=== PATIENT | male | born 1990 | race Caucasian/White ===

== ENCOUNTER 2017-05-13 14:30 | Emergency (ER) | payer OTHER ==
[2017-05-13] MEDS ORDERED: Ativan 2 MG/1 ML VIAL IV ONE ×2 (14:41→16:22)
[2017-05-13] MEDS ORDERED: Sodium Chloride 0.9% 1000 ML 1,000 ML IV SCH (14:45)
[2017-05-13 15:01] LABS: VBG BASE EXCESS 1.6 (-2.0-2.0); VBG CARBOXYHEMOGLOBIN 8.9 % T HGB (0.0-6.9); VBG HCO3- 24.7 meq/L (22-28); VBG HEMOGLOBIN 16.1; VBG O2 SATURATION 98.3 (95-100); VBG POTASSIUM 3.8 (3.5-5.1); VBG pH 7.47 (7.32-7.42)
--- NOTE | 2017-05-13 15:06 | ERPHSYRPT ---
- History of Present Illness Time Seen by Provider: 05/13/17 14:39 Source: patient, family (mother), EMS Patient Subjective Stated Complaint: PT states "Ever since tuesday when I put pressure on my legs I have a spell. I shake all over and I cant stand up." Triage Nursing Assessment: Pt alert and oriented X 3, skin pwd. Pt shaking all over. WHen pt moves, shaking gets worse. Pt unable to hold up either leg without tremors increasing. able to speak in clear full sentences. Physician History: CC: seizures Hx: 26 y/o patient with no local family doctor. He has no hx of seizure disorder. Since Tuesday he has had spells of shaking like seizures. They are intermittent, last 20 seconds, can no talk during. Worse if he tries to stand or exert himself. Normal urination. No N/T or focal weakness. No headache. Was taken to [facility] where CT brain negative and labs ok. Drug testing neg. He had EEG yesterday at [facility]. He was supposed to see neurology but that did not work out as it was a peds. He has hit his head during these spells. He was placed on celexa 4 weeks ago. Mom stopped it two days ago. No muscle pain. No other medications. He now is not able to function at home. Has been eating. No dysphagia. He had low grade temp at [facility]. Allergies/Adverse Reactions: iodine Allergy (Verified 05/31/14 03:23) Home Medications: Citalopram Hydrobromide [Celexa] 20 mg PO DAILY 05/13/17 [History] Hx Tetanus, Diphtheria Vaccination/Date Given: Yes Hx Influenza Vaccination/Date Given: No Hx Pneumococcal Vaccination/Date Given: No Immunizations Up to Date: Yes - Review of Systems Constitutional: Fatigue, Malaise, Weakness, No Fever Eyes: No Vision Changes, No Double Vision Ears, Nose, & Throat: No Symptoms Respiratory: No Cough, No Dyspnea Cardiac: No Chest Pain Abdominal/Gastrointestinal: No Abdominal Pain, No Nausea, No Vomiting, No Diarrhea Genitourinary Symptoms: No Dysuria Musculoskeletal: No Back Pain, No Neck Pain Neurological: No Focal Weakness, No Parasthesia All Other Systems: Reviewed and Negative - Past Medical History Pertinent Past Medical History: Yes Neurological History: No Pertinent History ENT History: No Pertinent History Cardiac History: No Pertinent History Respiratory History: Asthma, COPD, Other Endocrine Medical History: No Pertinent History Musculoskeletal History: No Pertinent History GI Medical History: No Pertinent History History: No Pertinent History Psycho-Social History: Depression, Other Male Reproductive Disorders: No Pertinent History Other Medical History: BORDERLINE PERSONALITY, suicide attempt in past- acetaminophen overdose requiring icu stay, inpatient psych unit stay with ed. - Past Surgical History Past Surgical History: Yes Neuro Surgical History: No Pertinent History Cardiac: No Pertinent History Respiratory: No Pertinent History Gastrointestinal: Hernia Repair Genitourinary: No Pertinent History Musculoskeletal: No Pertinent History Male Surgical History: No Pertinent History - Social History Smoking Status: Current every day smoker How long have you smoked: 10 years Exposure to second hand smoke: Yes Alcohol Use: Socially Drug Use: other Patient Lives Alone: Yes Significant Family History: no pertinent family hx - Nursing Vital Signs Nursing Vital Signs: Initial Vital Signs Temperature 100.8 F 05/13/17 14:30 Pulse Rate 128 H 05/13/17 14:30 Respiratory Rate 122 H 05/13/17 14:30 Blood Pressure 138/90 05/13/17 14:30 O2 Sat by Pulse Oximetry 97 05/13/17 14:30 Pain Scale Pain Intensity 0 - Luisa Coma Scale Best Eye Response (Luisa): (4) open spontaneously Best Verbal Response (Luisa): (5) oriented Best Motor Response ([place]): (6) obeys commands [place] Total: 15 - Physical Exam General Appearance: alert, other (very jittery) Eye Exam: bilateral eye: PERRL, EOMI Ears, Nose, Throat Exam: normal ENT inspection, moist mucous membranes Neck Exam: normal inspection, non-tender, supple, No meningismus Respiratory: normal breath sounds, lungs clear Cardiovascular: regular rate/rhythm, No murmur Gastrointestinal: soft, other (bladder was full but he was able to urinate without difficulty and it resolved), No tenderness, No distention, No mass, No guarding Male Genitalia: normal genitalia, No hernia, No testicular tenderness Back Exam: normal inspection, normal range of motion, No vertebral tenderness Extremity Exam: normal inspection, normal range of motion Mental Status: alert, oriented x 3, cooperative Coordination/Gait: No normal gait DTR: knee (R): 4+, knee (L): 4+, ankle (R): 3+, ankle (L): 3+ Skin Exam: warm, dry, ecchymosis (forehead), No rash SpO2 Interpretation: normal SpO2: 97 Oxygen Delivery: Room Air Comments: Neurological: Awake, alert. Very jittery. Lower extremities have fairly symmetrical weakness. He has marked clonus at patella and ankle jerks. No clonus at arms. No rigidity. Muscles soft and NT. Face symmetric. PERRL. EOMI. Neck supple. Procedures - Lumbar Puncture Indication: fever, r/o meningitis Lumbar Puncture: consent obtained, sitting, 1% lidocaine local anesth, size of needle (22ga), 4-5 lumbar space, fluid color clear, amount of fluid obtained ( 4ml), no complications - Course Nursing assessment & vital signs reviewed: Yes EKG Interpreted by Me: RATE ([id number]), Sinus Tach, NORMAL AXIS, NORMAL INTERVALS ( QTc 456), NORMAL QRS, NORMAL ST-T Ordered Tests: Active Orders 24 hr Category Date Time Status Clean Catch Urine Specimen STAT Care 05/13/17 14:39 Active EKG-ER Only STAT Care 05/13/17 14:39 Active IV Insertion STAT Care 05/13/17 14:39 Active NPO (ED) STAT Care 05/13/17 14:39 Active Pulse Oximetry (ED) STAT Care 05/13/17 14:41 Active Seizure Precautions -SCCHED STAT Care 05/13/17 14:41 Active MRI BRAIN W & W/O CONTRAST [MRI] Stat Exams 05/13/17 15:03 Taken BLOOD CULTURE Stat Lab 05/13/17 15:02 Received CBC W DIFF Stat Lab 05/13/17 14:39 Completed CK-Creatinine Phosphokinase Stat Lab 05/13/17 14:55 Completed CMP Stat Lab 05/13/17 14:55 Completed CRP, HIGH SENSITIVITY Stat Lab 05/13/17 14:55 Completed CSF GLUCOSE Stat Lab 05/13/17 17:15 Completed CSF PROTEIN Stat Lab 05/13/17 17:15 Completed CSF, CELL COUNT Stat Lab 05/13/17 17:15 Completed CULTURE,CSF Stat Lab 05/13/17 16:23 Uncollected CULTURE,CSF Stat Lab 05/13/17 17:15 Results Lactic Acid Stat Lab 05/13/17 14:48 Completed MAGNESIUM Stat Lab 05/13/17 14:55 Completed PROTIME WITH INR Stat Lab 05/13/17 14:55 Completed PTT Stat Lab 05/13/17 14:55 Completed UA W/RFX UR CULTURE Stat Lab 05/13/17 14:39 Completed Urine Triage Profile Stat Lab 05/13/17 14:39 Completed VENOUS BLOOD GAS Stat Lab 05/13/17 14:48 Completed Medication Summary Generic Name Dose Route Start Last Admin Trade Name Kemi PRN Reason Stop Dose Admin Sodium Chloride 1,000 mls @ 100 mls/hr 05/13/17 14:45 05/13/17 15:08 Sodium Chloride 0.9% 1000 Ml IV 06/12/17 14:44 100 mls/hr .Q10H ZELALEM Administration Discontinued Medications Generic Name Dose Route Start Last Admin Trade Name Hectorq PRN Reason Stop Dose Admin Lorazepam 1 mg 05/13/17 14:41 05/13/17 15:08 Ativan 2 Mg/1 Ml Vial IV 05/13/17 14:42 1 mg STAT ONE Administration Lorazepam Confirm 05/13/17 15:07 Ativan 2 Mg/1 Ml Vial Administered 05/13/17 15:08 Dose 2 mg .ROUTE .STK-MED ONE Lorazepam 1 mg 05/13/17 16:22 05/13/17 16:33 Ativan 2 Mg/1 Ml Vial IV 05/13/17 16:23 1 mg STAT ONE Administration Lorazepam Confirm 05/13/17 16:23 Ativan 2 Mg/1 Ml Vial Administered 05/13/17 16:24 Dose 2 mg .ROUTE .STK-MED ONE Lab/Rad Data: Laboratory Result Diagrams 05/13/17 14:39 05/13/17 14:55 Laboratory Results 05/13/17 05/13/17 05/13/17 Range/Units 17:15 17:15 14:55 WBC (4.0-10.5) K/mm3 RBC (4.1-5.6) M/mm3 Hgb (12.5-18.0) gm/dl Hct (42-50) % MCV (78-100) fl MCH (26-32) pg MCHC (32-36) g/dl RDW (11.5-14.0) % Plt Count (150-450) K/mm3 MPV (6-9.5) fl Gran % (36.0-66.0) % Lymphocytes % (24.0-44.0) % Monocytes % (0.0-12.0) % Eosinophils % (0.00-5.0) % Basophils % (0.0-0.4) % Basophils # (0-0.4) INR (0.8-3.0) APTT (24.1-36.1) SECONDS VBG pH (7.32-7.42) VBG pCO2 at Pat Temp (42-55) mm/Hg VBG pO2 at Pat Temp (25-40) mm/Hg VBG HCO3 (22-28) meq/L VBG O2 Sat (Dayana) (95-100) VBG Base Excess (-2.0-2.0) VBG Hemoglobin VBG Carboxyhemoglobin (0.0-6.9) % T HGB POC Potassium (3.5-5.1) Sodium (136-145) mEq/L Potassium (3.5-5.1) mEq/L Chloride (98-107) mEq/L Carbon Dioxide (21-32) mEq/L Anion Gap (5-15) MEQ/L BUN (9-20) mg/dL Creatinine (0.55-1.30) mg/dl Estimated GFR ML/MIN Glucose (70-110) MG/DL Lactic Acid (0.4-2.0) Calcium (8.5-10.1) mg/dL Magnesium 2.1 (1.8-2.4) mg/dL Total Bilirubin (0.2-1.0) mg/dL AST (15-37) U/L ALT (12-78) U/L Alkaline Phosphatase (46-116) U/L Creatine Kinase (39-308) U/L C-React Prot High Sens (0.0-3.0) mg/L Serum Total Protein (6.4-8.2) gm/dL Albumin (3.4-5.0) g/dL Ur Collection Type Urine Color (YELLOW) Urine Appearance (CLEAR) Urine pH (5-6) Ur Specific [place] (1.005-1.025) Urine Protein (Negative) Urine Ketones (NEGATIVE) Urine Blood (0-5) [place]/ul Urine Nitrite (NEGATIVE) Urine Bilirubin (NEGATIVE) Urine Urobilinogen (0-1) mg/dL Ur Leukocyte Esterase (NEGATIVE) Urine Culture Reflexed (NO) Urine Glucose (NEGATIVE) mg/dL CSF Appearance CLEAR CSF Color COLORLESS CSF WBC 2 (0-6) CU. MM CSF RBC 1 (0-2) CU. MM CSF Protein (2) 53.6 H (15-45) MG/DL CSF Glucose 61 (40-75) MG/DL Urine Opiates Level (NEGATIVE) Ur Methadone (NEGATIVE) Urine Barbiturates (NEGATIVE) Ur Phencyclidine (PCP) (NEGATIVE) Urine Amphetamine (NEGATIVE) U Benzodiazepine Level (NEGATIVE) Urine Cocaine (NEGATIVE) Urine Marijuana (THC) (NEGATIVE) Specimen Received 05/13/17 05/13/17 05/13/17 Range/Units 14:55 14:55 14:55 WBC (4.0-10.5) K/mm3 RBC (4.1-5.6) M/mm3 Hgb (12.5-18.0) gm/dl Hct (42-50) % MCV (78-100) fl MCH (26-32) pg MCHC (32-36) g/dl RDW (11.5-14.0) % Plt Count (150-450) K/mm3 MPV (6-9.5) fl Gran % (36.0-66.0) % Lymphocytes % (24.0-44.0) % Monocytes % (0.0-12.0) % Eosinophils % (0.00-5.0) % Basophils % (0.0-0.4) % Basophils # (0-0.4) INR 1.12 (0.8-3.0) APTT 35.2 (24.1-36.1) SECONDS VBG pH (7.32-7.42) VBG pCO2 at Pat Temp (42-55) mm/Hg VBG pO2 at Pat Temp (25-40) mm/Hg VBG HCO3 (22-28) meq/L VBG O2 Sat (Dayana) (95-100) VBG Base Excess (-2.0-2.0) VBG Hemoglobin VBG Carboxyhemoglobin (0.0-6.9) % T HGB POC Potassium (3.5-5.1) Sodium 141 (136-145) mEq/L Potassium 3.8 (3.5-5.1) mEq/L Chloride 105 (98-107) mEq/L Carbon Dioxide 25.1 (21-32) mEq/L Anion Gap 14.2 (5-15) MEQ/L BUN 8 L (9-20) mg/dL Creatinine 0.69 (0.55-1.30) mg/dl Estimated GFR > 60 ML/MIN Glucose 89 (70-110) MG/DL Lactic Acid (0.4-2.0) Calcium 9.0 (8.5-10.1) mg/dL Magnesium (1.8-2.4) mg/dL Total Bilirubin 0.20 (0.2-1.0) mg/dL AST 15 (15-37) U/L ALT 16 (12-78) U/L Alkaline Phosphatase 46 (46-116) U/L Creatine Kinase 122 (39-308) U/L C-React Prot High Sens 1.16 (0.0-3.0) mg/L Serum Total Protein 7.8 (6.4-8.2) gm/dL Albumin 4.7 (3.4-5.0) g/dL Ur Collection Type Urine Color (YELLOW) Urine Appearance (CLEAR) Urine pH (5-6) Ur Specific [place] (1.005-1.025) Urine Protein (Negative) Urine Ketones (NEGATIVE) Urine Blood (0-5) Gabino/ul Urine Nitrite (NEGATIVE) Urine Bilirubin (NEGATIVE) Urine Urobilinogen (0-1) mg/dL Ur Leukocyte Esterase (NEGATIVE) Urine Culture Reflexed (NO) Urine Glucose (NEGATIVE) mg/dL CSF Appearance CSF Color CSF WBC (0-6) CU. MM CSF RBC (0-2) CU. MM CSF Protein (2) (15-45) MG/DL CSF Glucose (40-75) MG/DL Urine Opiates Level (NEGATIVE) Ur Methadone (NEGATIVE) Urine Barbiturates (NEGATIVE) Ur Phencyclidine (PCP) (NEGATIVE) Urine Amphetamine (NEGATIVE) U Benzodiazepine Level (NEGATIVE) Urine Cocaine (NEGATIVE) Urine Marijuana (THC) (NEGATIVE) Specimen Received 05/13/17 05/13/17 05/13/17 Range/Units 14:48 14:48 14:39 WBC 10.2 (4.0-10.5) K/mm3 RBC 5.23 (4.1-5.6) M/mm3 Hgb 15.0 (12.5-18.0) gm/dl Hct 46.9 (42-50) % MCV 89.7 (78-100) fl MCH 28.7 (26-32) pg MCHC 32.0 (32-36) g/dl RDW 14.5 H (11.5-14.0) % Plt Count 351 (150-450) K/mm3 MPV 9.7 H (6-9.5) fl Gran % 73.2 H (36.0-66.0) % Lymphocytes % 18.1 L (24.0-44.0) % Monocytes % 7.6 (0.0-12.0) % Eosinophils % 0.8 (0.00-5.0) % Basophils % 0.3 (0.0-0.4) % Basophils # 0.03 (0-0.4) INR (0.8-3.0) APTT (24.1-36.1) SECONDS VBG pH 7.47 H (7.32-7.42) VBG pCO2 at Pat Temp 34 L (42-55) mm/Hg VBG pO2 at Pat Temp 71 H (25-40) mm/Hg VBG HCO3 24.7 (22-28) meq/L VBG O2 Sat (Dayana) 98.3 (95-100) VBG Base Excess 1.6 (-2.0-2.0) VBG Hemoglobin 16.1 VBG Carboxyhemoglobin 8.9 H* (0.0-6.9) % T HGB POC Potassium 3.8 (3.5-5.1) Sodium (136-145) mEq/L Potassium (3.5-5.1) mEq/L Chloride (98-107) mEq/L Carbon Dioxide (21-32) mEq/L Anion Gap (5-15) MEQ/L BUN (9-20) mg/dL Creatinine (0.55-1.30) mg/dl Estimated GFR ML/MIN Glucose (70-110) MG/DL Lactic Acid 1.0 (0.4-2.0) Calcium (8.5-10.1) mg/dL Magnesium (1.8-2.4) mg/dL Total Bilirubin (0.2-1.0) mg/dL AST (15-37) U/L ALT (12-78) U/L Alkaline Phosphatase (46-116) U/L Creatine Kinase (39-308) U/L C-React Prot High Sens (0.0-3.0) mg/L Serum Total Protein (6.4-8.2) gm/dL Albumin (3.4-5.0) g/dL Ur Collection Type Urine Color (YELLOW) Urine Appearance (CLEAR) Urine pH (5-6) Ur Specific [place] (1.005-1.025) Urine Protein (Negative) Urine Ketones (NEGATIVE) Urine Blood (0-5) Gabino/ul Urine Nitrite (NEGATIVE) Urine Bilirubin (NEGATIVE) Urine Urobilinogen (0-1) mg/dL Ur Leukocyte Esterase (NEGATIVE) Urine Culture Reflexed (NO) Urine Glucose (NEGATIVE) mg/dL CSF Appearance CSF Color CSF WBC (0-6) CU. MM CSF RBC (0-2) CU. MM CSF Protein (2) (15-45) MG/DL CSF Glucose (40-75) MG/DL Urine Opiates Level (NEGATIVE) Ur Methadone (NEGATIVE) Urine Barbiturates (NEGATIVE) Ur Phencyclidine (PCP) (NEGATIVE) Urine Amphetamine (NEGATIVE) U Benzodiazepine Level (NEGATIVE) Urine Cocaine (NEGATIVE) Urine Marijuana (THC) (NEGATIVE) Specimen Received 05/13/17 05/13/17 Range/Units 14:39 14:39 WBC (4.0-10.5) K/mm3 RBC (4.1-5.6) M/mm3 Hgb (12.5-18.0) gm/dl Hct (42-50) % MCV (78-100) fl MCH (26-32) pg MCHC (32-36) g/dl RDW (11.5-14.0) % Plt Count (150-450) K/mm3 MPV (6-9.5) fl Gran % (36.0-66.0) % Lymphocytes % (24.0-44.0) % Monocytes % (0.0-12.0) % Eosinophils % (0.00-5.0) % Basophils % (0.0-0.4) % Basophils # (0-0.4) INR (0.8-3.0) APTT (24.1-36.1) SECONDS VBG pH (7.32-7.42) VBG pCO2 at Pat Temp (42-55) mm/Hg VBG pO2 at Pat Temp (25-40) mm/Hg VBG HCO3 (22-28) meq/L VBG O2 Sat (Dayana) (95-100) VBG Base Excess (-2.0-2.0) VBG Hemoglobin VBG Carboxyhemoglobin (0.0-6.9) % T HGB POC Potassium (3.5-5.1) Sodium (136-145) mEq/L Potassium (3.5-5.1) mEq/L Chloride (98-107) mEq/L Carbon Dioxide (21-32) mEq/L Anion Gap (5-15) MEQ/L BUN (9-20) mg/dL Creatinine (0.55-1.30) mg/dl Estimated GFR ML/MIN Glucose (70-110) MG/DL Lactic Acid (0.4-2.0) Calcium (8.5-10.1) mg/dL Magnesium (1.8-2.4) mg/dL Total Bilirubin (0.2-1.0) mg/dL AST (15-37) U/L ALT (12-78) U/L Alkaline Phosphatase (46-116) U/L Creatine Kinase (39-308) U/L C-React Prot High Sens (0.0-3.0) mg/L Serum Total Protein (6.4-8.2) gm/dL Albumin (3.4-5.0) g/dL Ur Collection Type VOID Urine Color YELLOW (YELLOW) Urine Appearance CLEAR (CLEAR) Urine pH 8.0 (5-6) Ur Specific [place] 1.005 (1.005-1.025) Urine Protein NEGATIVE (Negative) Urine Ketones NEGATIVE (NEGATIVE) Urine Blood NEGATIVE (0-5) Gab[place]/ul Urine Nitrite NEGATIVE (NEGATIVE) Urine Bilirubin NEGATIVE (NEGATIVE) Urine Urobilinogen NORMAL (0-1) mg/dL Ur Leukocyte Esterase NEGATIVE (NEGATIVE) Urine Culture Reflexed NO (NO) Urine Glucose NEGATIVE (NEGATIVE) mg/dL CSF Appearance CSF Color CSF WBC (0-6) CU. MM CSF RBC (0-2) CU. MM CSF Protein (2) (15-45) MG/DL CSF Glucose (40-75) MG/DL Urine Opiates Level NEG. (NEGATIVE) Ur Methadone NEG. (NEGATIVE) Urine Barbiturates NEG. (NEGATIVE) Ur Phencyclidine (PCP) NEG. (NEGATIVE) Urine Amphetamine NEG. (NEGATIVE) U Benzodiazepine Level NEG. (NEGATIVE) Urine Cocaine NEG. (NEGATIVE) Urine Marijuana (THC) NEG. (NEGATIVE) Specimen Received 05/13/17 1430 - Progress Progress Note: 05/13/17 16:11 MRI brain with and without contrast negative per Dr Saldivar. He does have opacification of one maxiallary sinus. Reviewed [facility] head CT- negative. Reviewed EEG [place] yesterday- negative. He had twitching of leg with negative EEG. He is very hyper-reflexic with clonus. This is possibly serotonin syndrome. He was on celexa. Mom stopped it Wed (2 days ago). He has low grade fever so will get LP to rule out encephalitis. 05/13/17 16:23 Discussed lumbar puncture including risk of headache, bleeding, infection, nerve damage. He agrees to proceed. 05/13/17 17:25 He has had 1L NS. He has had 2 doses ativan. Muscle clonus is markedly better. No more myoclonic jerks. He stilll has ankle clonus and hyper-reflexia of the patella. 05/13/17 18:[address] Finley (oc). She advised transfer pt to facility with neurology. 05/13/17 19:27 CAlled [facility] one call. Spoke to dr Milton neurology and he advised transfer to hospitalist. Spoke to Dr Frausto who accepts transfer to hospitalist service. Counseled pt/family regarding: lab results, diagnosis, need for follow-up, rad results - Departure Time of Disposition: 19:28 Departure Disposition: Transfer ([facility]) Clinical Impression: Serotonin syndrome, Hyper reflexia Condition: Fair Critical Care Time: No Referrals: CORNELIO KULKARNI MD [Primary Care Provider] -
[2017-05-13] MEDS ORDERED: Ativan 2 MG/1 ML VIAL ONE ×2 (15:07→16:23)
[2017-05-13] MEDS ORDERED: Sodium Chloride 0.9% 1000 ML 1,000 ML ONE (15:07)
[2017-05-13 15:09] LABS: BASOPHIL % 0.3 % (0.0-0.4); Basophil (Absolute #) 0.03 (0-0.4); Eosinophil % 0.8 % (0.00-5.0); Eosinophil (Absolute #) 0.08 (0-0.5); Granulocyte Absolute (ANC) 7.49 (1.4-6.9); Granulocytes % 73.2 % (36.0-66.0); Hematocrit 46.9 % (42-50); Lymphocyte (Absolute #) 1.85 (1.0-4.6); Lymphocytes % 18.1 % (24.0-44.0); Mean Cell Volume 89.7 fl (78-100); Mean Corpuscular Hemoglobin 28.7 pg (26-32); Mean Platelet Volume 9.7 fl (6-9.5); Monocyte (Absolute #) 0.78 (0.0-1.3); Monocytes % 7.6 % (0.0-12.0); Platelet Count 351 K/mm3 (150-450); Red Blood Count 5.23 M/mm3 (4.1-5.6); Red Cell Distribution Width 14.5 % (11.5-14.0); White Blood Count 10.2 K/mm3 (4.0-10.5)
[2017-05-13 15:18] LABS: Appearance CLEAR (CLEAR); Bilirubin NEGATIVE (NEGATIVE); Blood NEGATIVE Ery/ul (0-5); Glucose NEGATIVE (NEGATIVE); Ketones NEGATIVE (NEGATIVE); Leukocyte Esterase NEGATIVE (NEGATIVE); Nitrite NEGATIVE (NEGATIVE); Protein,Urine Dip NEGATIVE (Negative); Specific Gravity 1.005 (1.005-1.025); Urobilinogen NORMAL mg/dL (0-1)
[2017-05-13 15:19] LABS: Amphetamine,Urine NEG. (NEGATIVE); Barbiturate,Urine NEG. (NEGATIVE); Benzodiazepine,Urine NEG. (NEGATIVE); Cocaine,Urine NEG. (NEGATIVE); Methadone,Urine NEG. (NEGATIVE); Opiate,Urine NEG. (NEGATIVE); PCP,Urine NEG. (NEGATIVE); THC,Urine NEG. (NEGATIVE)
[2017-05-13 15:28] LABS: ALBUMIN 4.7 g/dL (3.4-5.0); ALKALINE PHOSPHATASE 46 U/L (46-116); ANION GAP 14.2 MEQ/L (5-15); BLOOD UREA NITROGEN 8 mg/dL (9-20); CHLORIDE 105 mEq/L (98-107); Carbon Dioxide 25.1 mEq/L (21-32); Creatinine 1 0.69 mg/dl (0.55-1.30); EST GLOMERULAR FILTRATION RATE > 60 ML/MIN; Glucose 89 MG/DL (70-110); Potassium 3.8 mEq/L (3.5-5.1); SGOT/AST 15 U/L (15-37); SGPT/ALT 16 U/L (12-78); SODIUM 141 mEq/L (136-145); Total Protein 7.8 gm/dL (6.4-8.2)
[2017-05-13 16:06] LABS: INR 1.12 (0.8-3.0)
[2017-05-13 16:09] LABS: PTT 35.2 SECONDS (24.1-36.1)
[2017-05-13 17:34] LABS: CSF CLARITY CLEAR; CSF COLOR COLORLESS; CSF RBCS 1 CU. MM (0-2); CSF WBCS 2 CU. MM (0-6)
[2017-05-13 17:44] LABS: CSF PROTEIN 53.6 MG/DL (15-45)
[2017-05-13 20:40] VITALS: BP 126/93; PULSE 88; O2SAT 98
--- NOTE | 2017-05-13 22:41 | XRAY ---
Indication: Multiple seizures. Sagittal, coronal, and axial MRI brain was performed using pre-and post T1, T2, FLAIR, diffusion, and ADC sequences. 10 cc Magnevist contrast utilized. Comparison: None Ventriculosulcal pattern appears symmetric. No acute intracranial hemorrhage, abnormal extra-axial fluid collection, or mass effect. Diffusion images are negative for restrictive signal. No evidence for mesial temporal sclerosis. Following gadolinium, there is no abnormal enhancing intra-or extra-axial mass. Fourth ventricle is midline without hydrocephalus. 7/8 cranial nerve complex bilaterally symmetric. Normal-appearing craniocervical junction and sella turcica. There is near complete opacification of the visualized left maxillary sinus. Impression: 1. Left maxillary sinus disease. 2. Remaining MRI brain with and without contrast exam is negative. Comment: Case was discussed with the ordering clinician, Dr. Gu following the exam.
== END 2017-05-13 20:30 | disposition short-term general hospital (02) ==
LOC: ED 14:30
DX: G25.9 Extrapyramidal and movement disorder, unspecified (principal); R25.8 Other abnormal involuntary movements; R53.83 Other fatigue; J44.9 Chronic obstructive pulmonary disease, unspecified
CPT/HCPCS: 36415; 70553; 80053; 80307; 81002; 82550; 82805; 82945; 83605; 83735; 84157; 85025; 85610; 85730; 86140; 87040; 87070; 89050; 93005; 99285; J2060

== ENCOUNTER 2017-09-25 10:51 | Emergency (ER) | payer OTHER ==
[2017-09-25 11:40] LABS: BASOPHIL % 0.4 % (0.0-0.4); Basophil (Absolute #) 0.02 (0-0.4); Eosinophil % 2.3 % (0.00-5.0); Eosinophil (Absolute #) 0.12 (0-0.5); Granulocyte Absolute (ANC) 3.01 (1.4-6.9); Granulocytes % 57.2 % (36.0-66.0); Hematocrit 40.2 % (42-50); Hemoglobin 13.5 gm/dl (12.5-18.0); Lymphocyte (Absolute #) 1.53 (1.0-4.6); Lymphocytes % 29.1 % (24.0-44.0); Mean Cell Volume 88.7 fl (78-100); Mean Corpuscular Hemoglobin 29.8 pg (26-32); Mean Corpuscular Hgb Concent. 33.6 g/dl (32-36); Mean Platelet Volume 9.8 fl (6-9.5); Monocyte (Absolute #) 0.58 (0.0-1.3); Platelet Count 322 K/mm3 (150-450); Red Blood Count 4.53 M/mm3 (4.1-5.6); Red Cell Distribution Width 13.9 % (11.5-14.0); White Blood Count 5.3 K/mm3 (4.0-10.5)
--- NOTE | 2017-09-25 11:50 | ERPHSYRPT ---
- History of Present Illness Time Seen by Provider: 09/25/17 11:35 Source: patient Exam Limitations: no limitations Patient Subjective Stated Complaint: Pt states "I have been having problems with malnutrition, drug use and mental health issues. I have PTSD and I am not getting better. I tried iv meth for the first time two days ago and I really want help. I called [facility] and they said they would accept me but I need medical clearance." Triage Nursing Assessment: Pt alert and oriented X 3, skin pwd. PT ambualates with an upright steady gait, able to speak in clear full sentences. Pt child and the cassie mother are in room with pt. PT calm, speaks clearly, no apparent distress. Physician History: This is a 27-year-old white male with history of depression, borderline personality disorder, He arrives with complaint of that he's been using methamphetamines again he also had drink a couple weeks ago States she has not been eating well he says he has been depressed. He denies suicidal or homicidal ideation. He states that he contacted [facility] and they told him that he needed medical clearance. Past medical history includes asthma, COPD, depression, borderline personality disorder, he's had a serious attempt with acetaminophen in the past. Past surgical history includes hernia repair. Social history patient states he was heavy drinking 2 weeks ago he states he's been using IV methamphetamines. Timing/Duration: week(s) (patient states heavy drinking 2 weeks ago, states he' s been using IV methamphamine for 1 week) Severity: moderate Modifying Factors: Improves With: nothing Associated Symptoms: other (IV drug use), No nausea, No vomiting, No shortness of breath, No heartburn, No diaphoresis, No cough, No chills, No chest pain, No fever, No headaches, No loss of appetite, No malaise, No rash, No syncope, No seizure (blood), No weakness Allergies/Adverse Reactions: iodine Allergy (Verified 05/31/14 03:23) Home Medications: Albuterol Sulfate [Ventolin Hfa] 1 puff IH DAILY 09/25/17 [History] hydrOXYzine pamoate [Hydroxyzine Pamoate] 25 mg PO DAILY PRN 09/25/17 [History] Hx Tetanus, Diphtheria Vaccination/Date Given: Yes Hx Influenza Vaccination/Date Given: No Hx Pneumococcal Vaccination/Date Given: No Immunizations Up to Date: Yes - Review of Systems Constitutional: No Fever, No Chills Eyes: No Symptoms Ears, Nose, & Throat: No Symptoms Respiratory: No Cough, No Dyspnea Cardiac: No Chest Pain, No Edema, No Syncope Abdominal/Gastrointestinal: Appetite Changes, No Abdominal Pain, No Nausea, No Vomiting, No Diarrhea Genitourinary Symptoms: No Dysuria Musculoskeletal: No Back Pain, No Neck Pain Skin: No Rash Neurological: No Dizziness, No Focal Weakness, No Sensory Changes Psychological: Alcohol Abuse, Drug Abuse, Anxiety, Depression, No Suicidal Ideations, No Homicidal Ideations Endocrine: No Symptoms All Other Systems: Reviewed and Negative - Past Medical History Pertinent Past Medical History: Yes Neurological History: No Pertinent History ENT History: No Pertinent History Cardiac History: No Pertinent History Respiratory History: Asthma, COPD, Other Endocrine Medical History: No Pertinent History Musculoskeletal History: No Pertinent History GI Medical History: No Pertinent History History: No Pertinent History Psycho-Social History: Depression, Other Male Reproductive Disorders: No Pertinent History Other Medical History: BORDERLINE PERSONALITY, suicide attempt in past- acetaminophen overdose requiring icu stay, inpatient psych unit stay with ed. - Past Surgical History Past Surgical History: Yes Neuro Surgical History: No Pertinent History Cardiac: No Pertinent History Respiratory: No Pertinent History Gastrointestinal: Hernia Repair Genitourinary: No Pertinent History Musculoskeletal: No Pertinent History Male Surgical History: No Pertinent History - Social History Smoking Status: Current every day smoker How long have you smoked: years Exposure to second hand smoke: Yes Alcohol Use: Socially Drug Use: other Patient Lives Alone: Yes Significant Family History: no pertinent family hx - Nursing Vital Signs Nursing Vital Signs: Initial Vital Signs Temperature 99.1 F 09/25/17 11:00 Pulse Rate 90 09/25/17 11:00 Respiratory Rate 18 09/25/17 11:00 Blood Pressure 136/90 09/25/17 11:00 O2 Sat by Pulse Oximetry 97 09/25/17 11:00 Pain Scale Pain Intensity 0 - Physical Exam General Appearance: no apparent distress, alert Eye Exam: PERRL/EOMI, eyes nml inspection Ears, Nose, Throat Exam: normal ENT inspection, TMs normal, pharynx normal, moist mucous membranes Neck Exam: normal inspection, non-tender, supple, full range of motion Respiratory Exam: normal breath sounds Cardiovascular Exam: regular rate/rhythm, normal heart sounds, normal peripheral pulses Gastrointestinal/Abdomen Exam: soft, normal bowel sounds, No tenderness, No mass Back Exam: normal inspection, normal range of motion, No CVA tenderness, No vertebral tenderness Extremity Exam: normal inspection, normal range of motion, pelvis stable Neurologic Exam: alert, oriented x 3, cooperative, 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 as tested, normal mood/affect, nml cerebellar function, nml station & gait, sensation nml, No motor deficits Skin Exam: normal color, warm, dry, No rash Lymphatic Exam: No adenopathy SpO2 Interpretation: normal (97%) SpO2: 97 Oxygen Delivery: Room Air - Course Nursing assessment & vital signs reviewed: Yes EKG Interpreted by Me: RATE (75 bpm), NORMAL AXIS, Other (EKG sinus arrhythmia 75 bpm normal axis no acute ST or T wave changes normal EKG) Ordered Tests: Active Orders 24 hr Category Date Time Status EKG-ER Only STAT Care 09/25/17 11:16 Active ACETAMINOPHEN Stat Lab 09/25/17 11:25 Completed CBC W DIFF Stat Lab 09/25/17 11:25 Completed CMP Stat Lab 09/25/17 11:25 Completed ETHYL ALCOHOL Stat Lab 09/25/17 11:25 Completed SALICYLATE Stat Lab 09/25/17 11:25 Completed Urine Triage Profile Stat Lab 09/25/17 12:09 Completed Lab/Rad Data: Laboratory Result Diagrams 09/25/17 11:25 09/25/17 11:25 Laboratory Results 09/25/17 09/25/17 09/25/17 Range/Units 12:09 11:25 11:25 WBC 5.3 (4.0-10.5) K/mm3 RBC 4.53 (4.1-5.6) M/mm3 Hgb 13.5 (12.5-18.0) gm/dl Hct 40.2 L (42-50) % MCV 88.7 (78-100) fl MCH 29.8 (26-32) pg MCHC 33.6 (32-36) g/dl RDW 13.9 (11.5-14.0) % Plt Count 322 (150-450) K/mm3 MPV 9.8 H (6-9.5) fl Gran % 57.2 (36.0-66.0) % Eos # (Auto) 0.12 (0-0.5) Absolute Lymphs (auto) 1.53 (1.0-4.6) Absolute Monos (auto) 0.58 (0.0-1.3) Lymphocytes % 29.1 (24.0-44.0) % Monocytes % 11.0 (0.0-12.0) % Eosinophils % 2.3 (0.00-5.0) % Basophils % 0.4 (0.0-0.4) % Absolute Granulocytes 3.01 (1.4-6.9) Basophils # 0.02 (0-0.4) Sodium 141 (137-145) mmol/L Potassium 4.0 (3.5-5.1) mmol/L Chloride 110 H (98-107) mmol/L Carbon Dioxide 24 (22-30) mmol/L Anion Gap 10.7 (5-15) MEQ/L BUN 11 (9-20) mg/dL Creatinine 0.55 L (0.66-1.25) mg/dL Estimated GFR > 60.0 ML/MIN Glucose 111 H (74-106) mg/dL Calcium 8.8 (8.4-10.2) mg/dL Total Bilirubin 0.10 L (0.2-1.3) mg/dL AST 16 L (17-59) U/L ALT 16 (0-50) U/L Alkaline Phosphatase 53 (38-126) U/L Serum Total Protein 7.0 (6.3-8.2) g/dL Albumin 4.0 (3.5-5.0) g/dL Salicylates < 1.0 L (2-20) mg/dL Urine Opiates Level NEGATIVE (NEGATIVE) Ur Methadone NEGATIVE (NEGATIVE) Acetaminophen < 10 L (10-30) ug/ml Urine Barbiturates NEGATIVE (NEGATIVE) Ur Phencyclidine (PCP) NEGATIVE (NEGATIVE) Urine Amphetamine POSITIVE (NEGATIVE) U Benzodiazepine Level NEGATIVE (NEGATIVE) Urine Cocaine NEGATIVE (NEGATIVE) Urine Marijuana (THC) NEGATIVE (NEGATIVE) Ethyl Alcohol < 10 (0-10) mg/dL - Progress Progress: improved Progress Note: 09/25/17 13:48 27-year-old white male who states that he has begun abusing methamphetamine for the last week and apparently injected at 2 days ago. Also 2 weeks ago was having heavy alcohol or drinking. He states he is depressed he states he is not suicidal or homicidal. He has contacted [facility] and they stated that he needed to be medically cleared. Patient does have a history of suicide attempt by overdosing in the past with Tylenol. History of bipolar disorder. Currently the patient is stable. Labs are stable including CBC CMP him acetaminophen level and salicylate level are normal. EKG sinus arrhythmia 75 bpm normal axis normal EKG The nurses have been in contact with [facility]. Patient has been accepted at [facility] for evaluation. Dr. Stallworth is the accepting physician. Patient's will transport the patient he denies suicidal or homicidal ideation - Departure Time of Disposition: 13:52 Departure Disposition: Transfer ([facility] Dr. Stallworth) Clinical Impression: Substance abuse Depression Qualifiers: Depression Type: unspecified Qualified Code(s): F32.9 - Major depressive disorder, single episode, unspecified Condition: Fair Critical Care Time: No Referrals: SELWYN VINCENT [Primary Care Provider] - Additional Instructions: proceed Directly to [facility]
[2017-09-25 11:55] LABS: ACETAMINOPHEN < 10 ug/ml (10-30); ALKALINE PHOSPHATASE 53 U/L (38-126); ANION GAP 10.7 MEQ/L (5-15); BLOOD UREA NITROGEN 11 mg/dL (9-20); CHLORIDE 110 mmol/L (98-107); Calcium 8.8 mg/dL (8.4-10.2); Carbon Dioxide 24 mmol/L (22-30); Creatinine 1 0.55 mg/dL (0.66-1.25); ETHYL ALCOHOL < 10 mg/dL (0-10); Glucose 111 mg/dL (74-106); SALICYLATE < 1.0 mg/dL (2-20); SGOT/AST 16 U/L (17-59); SGPT/ALT 16 U/L (0-50); SODIUM 141 mmol/L (137-145)
[2017-09-25 12:32] LABS: Barbiturate,Urine NEGATIVE (NEGATIVE); Benzodiazepine,Urine NEGATIVE (NEGATIVE); Cocaine,Urine NEGATIVE (NEGATIVE); Methadone,Urine NEGATIVE (NEGATIVE); Opiate,Urine NEGATIVE (NEGATIVE); PCP,Urine NEGATIVE (NEGATIVE); THC,Urine NEGATIVE (NEGATIVE)
[2017-09-25 13:03] LABS: Amphetamine,Urine POSITIVE (NEGATIVE)
[2017-09-25 13:52] VITALS: O2SAT 97
[2017-09-25 13:56] VITALS: BP 124/77; PULSE 78
== END 2017-09-25 14:01 | disposition short-term general hospital (02) ==
LOC: ED 10:51
DX: F15.10 Other stimulant abuse, uncomplicated (principal); F32.9 Major depressive disorder, single episode, unspecified
CPT/HCPCS: 36415; 80053; 80307; 85025; 93005; 99284; G0481; G0480

== ENCOUNTER 2021-03-29 22:52 | Emergency (ER) | payer OTHER ==
[2021-03-29 22:59] VITALS: BP 159/93; PULSE 103; O2SAT 99
--- NOTE | 2021-03-29 23:07 | ERPHSYRPT ---
- History of Present Illness Time Seen by Provider: 03/29/21 23:03 Source: patient, police Exam Limitations: no limitations Physician History: This is a 30-year-old white male resident of local long-term brought in by the humanities professor with complaint of unable to urinate today and passage of a small amount of bloody urine. Patient states he does not have significant amount of pain and has not had the urge to urinate today. However, he also states he has not tried. Patient has a history of bipolar disorder, PTSD, depression and COPD. He states he has more of pressure in bilateral flanks. Timing/Duration: today Activites at Onset: none Quality: pressure Onset Location: generalized flank Severity of Pain-Max: mild Severity of Pain-Current: mild Modifying Factors: Improves With: nothing Associated Symptoms: other (Hematuria, did not void today) Allergies/Adverse Reactions: iodine Allergy (Verified 03/29/21 23:19) Bleach (Sodium Hypochlorite) Adverse Reaction (Verified 03/29/21 23:20) Home Medications: Ibuprofen 600 mg PO BID PRN PRN 03/29/21 [History] Hx Tetanus, Diphtheria Vaccination/Date Given: Yes Hx Influenza Vaccination/Date Given: No Hx Pneumococcal Vaccination/Date Given: No Travel Risk - International Travel Have you traveled outside of the country in past 3 weeks: No - Coronavirus Screening Are you exhibiting any of the following symptoms?: No Close contact with a COVID-19 positive Pt in past 14-21 Days: No - Past Medical History Pertinent Past Medical History: Yes Neurological History: No Pertinent History ENT History: No Pertinent History Cardiac History: No Pertinent History Respiratory History: Asthma, COPD, Other Endocrine Medical History: No Pertinent History Musculoskeletal History: No Pertinent History GI Medical History: No Pertinent History History: No Pertinent History Psycho-Social History: Depression, Other Male Reproductive Disorders: No Pertinent History Other Medical History: BORDERLINE PERSONALITY, suicide attempt in past- acetaminophen overdose requiring icu stay, inpatient psych unit stay with ed. - Past Surgical History Past Surgical History: Yes Neuro Surgical History: No Pertinent History Cardiac: No Pertinent History Respiratory: No Pertinent History Gastrointestinal: Hernia Repair Genitourinary: No Pertinent History Musculoskeletal: No Pertinent History Male Surgical History: No Pertinent History - Social History Smoking Status: Current every day smoker How long have you smoked: years Exposure to second hand smoke: Yes Alcohol Use: Socially Drug Use: other Patient Lives Alone: Yes Significant Family History: no pertinent family hx - Review of Systems Constitutional: No Symptoms Eyes: No Symptoms Ears, Nose, & Throat: No Symptoms Respiratory: No Symptoms Cardiac: No Symptoms Abdominal/Gastrointestinal: No Symptoms Genitourinary Symptoms: Urinary Retention (But has not tried to urinate. He does not feel the urge to.), Flank Pain (Lateral) Musculoskeletal: No Symptoms Skin: No Symptoms Neurological: No Symptoms Psychological: No Symptoms Endocrine: No Symptoms Hematologic/Lymphatic: No Symptoms Immunological/Allergic: No Symptoms All Other Systems: Reviewed and Negative - Nursing Vital Signs Nursing Vital Signs: Initial Vital Signs Temperature 98.2 F 03/29/21 22:57 Pulse Rate 103 H 03/29/21 22:57 Respiratory Rate 18 03/29/21 22:57 Blood Pressure 159/93 03/29/21 22:57 O2 Sat by Pulse Oximetry 99 03/29/21 22:57 Pain Scale Pain Intensity 7 - Physical Exam General Appearance: no apparent distress, alert, anxiety Eye Exam: PERRL/EOMI, eyes nml inspection Ears, Nose, Throat Exam: normal ENT inspection, moist mucous membranes Neck Exam: normal inspection, non-tender, supple, full range of motion Respiratory Exam: airway intact, No chest tenderness, No respiratory distress Gastrointestinal/Abdomen Exam: No tenderness Rectal Exam: not done Back Exam: CVA tenderness (Bilateral. 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 nml as tested, normal mood/affect, nml cerebellar function, nml station & gait, sensation nml Skin Exam: normal color, warm, dry Lymphatic Exam: No adenopathy SpO2 Interpretation: normal SpO2: 99 O2 Delivery: Room Air - Course Nursing assessment & vital signs reviewed: Yes Ordered Tests: Active Orders 24 hr Category Date Time Status CULTURE,URINE Stat Lab 03/29/21 23:07 Received UA W/RFX UR CULTURE Stat Lab 03/29/21 23:07 Completed Lab/Rad Data: Laboratory Results 03/29/21 Range/Units 23:07 Urine Color YELLOW (YELLOW) Urine Appearance CLEAR (CLEAR) Urine pH 6.0 (5-6) Ur Specific Rosie 1.021 (1.005-1.025) Urine Protein NEGATIVE (Negative) Urine Ketones NEGATIVE (NEGATIVE) Urine Blood NEGATIVE (0-5) Gabino/ul Urine Nitrite NEGATIVE (NEGATIVE) Urine Bilirubin NEGATIVE (NEGATIVE) Urine Urobilinogen NEGATIVE (0-1) mg/dL Ur Leukocyte Esterase NEGATIVE (NEGATIVE) Urine WBC (Auto) NONE (0-5) /HPF Urine RBC (Auto) 6-10 (0-2) /HPF U Epithel Cells (Auto) NONE (FEW) /HPF Urine Bacteria (Auto) NONE (NEGATIVE) /HPF Urine Mucus (Auto) SLIGHT (NEGATIVE) /HPF Urine Culture Reflexed ORDERED SEPARATELY (NO) Urine Glucose NEGATIVE (NEGATIVE) mg/dL - Progress Progress: improved, re-examined Progress Note: 03/29/21 23:21 Medical decision making: This patient came in from local long-term by law enforcement. He stated that he has not urinated today but also stated he had not even tried. He also thought there was a little blood in his urine. Patient was able to urinate on his own 375 mL of urine. On urinalysis, there is no evidence of infection and no hematuria. He will be discharged back to long-term and he is to follow-up with the urologist as an outpatient. Counseled pt/family regarding: lab results, need for follow-up - Departure Departure Disposition: Home Clinical Impression: Flank pain Condition: Stable Critical Care Time: No Additional Instructions: Drink plenty of fluids. If you do have concerns about urinating or have persistent flank pain, follow-up with a urologist as an outpatient.
[2021-03-29 23:16] LABS: Appearance CLEAR (CLEAR); Bilirubin NEGATIVE (NEGATIVE); Blood NEGATIVE Ery/ul (0-5); Glucose NEGATIVE (NEGATIVE); Ketones NEGATIVE (NEGATIVE); Leukocyte Esterase NEGATIVE (NEGATIVE); Mucus SLIGHT /HPF (NEGATIVE); Nitrite NEGATIVE (NEGATIVE); Protein,Urine Dip NEGATIVE (Negative); Specific Gravity 1.021 (1.005-1.025); Urobilinogen NEGATIVE mg/dL (0-1)
== END 2021-03-29 23:27 | disposition home or self-care (01) ==
LOC: ED 22:52 → EEVIPCON 22:52 → ED 23:27
DX: R10.9 Unspecified abdominal pain (principal); Z72.0 Tobacco use
CPT/HCPCS: 81001; 87086; 99283